=== PATIENT | female | born 1960 | race Caucasian/White ===

== ENCOUNTER 2022-03-05 16:27 | Inpatient (IN) | payer MEDICAID, OTHER, SELFPAY ==
[~2022-03-05] VITALS: Ht 167.6 cm; Wt 86.6 kg
--- NOTE | 2022-03-05 16:28 | NUR ---
BIBA to bed 10.
[2022-03-05 16:32] VITALS: BP 110/83
--- NOTE | 2022-03-05 16:33 | NUR ---
Patient states sternal chest pain 7/10, pressure/constant, radiating to mid back.
--- NOTE | 2022-03-05 16:33 | NUR ---
Pt also reports cough, headche, congestion. reports breathing tx without relief to symptoms. SpO2 100% on 2L by N.C
--- NOTE | 2022-03-05 16:33 | NUR ---
Dr. Mistry is evaluating patient at bedside
--- NOTE | 2022-03-05 16:33 | NUR ---
61 y/o F SAMMIE from [facility] [place] for acute onset of chest pain, nausea/vomiting, dizziness, SOB. Patient A&Ox4, non-ambulatory; EMS reports patient received ~55 minutes of dialysis removing 700mL of fluids. Patient reports vomiting x 6-7 episodes since 1500. Denies fever, chills, diarrhea, constipation. Dialysis port right upper chest; left fistula noted pt states inactive. Pt placed onto phototypesetting equipment monitor. SpO2 100% on room air. EMS states dialysis staff administered Tylenol 650mg PO prior to arrival. Lung sounds bilateral wheezing. Bed locked in lowest position, side rails x 2. PMH: hyperkalemia, acute renal failure, DM2, HTN, anemia, 2 MIs Meds: see chart NKDA Addendum: 03/05/22 at 1654 by MEDHL 61 y/o F SAMMIE from [facility] for acute onset of chest pain, nausea/vomiting, dizziness, SOB. Patient A&Ox4, non-ambulatory; EMS reports patient received ~55 minutes of dialysis removing 700mL of fluids. Patient reports vomiting x 6-7 episodes since 1500. Denies fever, chills, diarrhea, constipation. Dialysis port right upper chest; left fistula noted pt states inactive. Pt placed onto phototypesetting equipment monitor. SpO2 100% on 2L by TN. EMS states dialysis staff administered Tylenol 650mg PO prior to arrival. Lung sounds bilateral wheezing. Bed locked in lowest position, side rails x 2. PMH: hyperkalemia, acute renal failure, DM2, HTN, anemia, 2 MIs Meds: see chart NKDA
--- NOTE | 2022-03-05 16:36 | NUR ---
EMT at bedside for EKG
--- NOTE | 2022-03-05 16:43 | NUR ---
RAD at bedside
--- NOTE | 2022-03-05 16:53 | NUR ---
Spoke with Awais (daughter) Meds: Lisinopril, pantoprazole, trazodone, atenolol, ferrous sulfate, docusate sodium, sevelamer, vitamin D, albuterol
--- NOTE | 2022-03-05 16:54 | NUR ---
Lab at bedside
[2022-03-05] MEDS ORDERED: ALBUTEROL SULFATE/IPRATROPIU 3 ML SOL IH ONE (17:00)
[2022-03-05] MEDS ORDERED: ONDANSETRON 4 MG/2 ML VIAL IVP ONE (17:00)
--- NOTE | 2022-03-05 17:00 | NUR ---
Lab unable to draw bloodwork. Dr. Mistry made aware.
--- NOTE | 2022-03-05 17:15 | NUR ---
Patient states IV insertions started to left hand approved by her fire extinguisher repairer where inactive port resides to left upper arm. Dr. Mistry, charge nurse made aware.
--- NOTE | 2022-03-05 17:28 | NUR ---
RT at bedside for breathing treatment
--- NOTE | 2022-03-05 17:45 | NUR ---
RT remains at bedside for BiPAP application. IPAP/EPAP 10/5, Rate 10, FiO2 28%
[2022-03-05 17:49] VITALS: BP 195/69
--- NOTE | 2022-03-05 18:01 | NUR ---
Dr. Mistry is at bedside for ultrasound guided IV.
--- NOTE | 2022-03-05 18:11 | NUR ---
Blood sample collected, handed to CPT Susanne at ER bedside.
--- NOTE | 2022-03-05 18:12 | NUR ---
PT C/O PAIN, COOLNESS TO R UPPER ARM IV SITE. DR. CARLSON MADE AWARE.
[2022-03-05] MEDS ORDERED: MORPHINE SULFATE 4 MG/ML SYR IM ONE (18:15)
[2022-03-05] MEDS ORDERED: ONDANSETRON 4 MG/2 ML VIAL IM ONE (18:15)
[2022-03-05 18:26] LABS: BASOPHILS # (AUTO) 0.1 K/uL (0.00-0.22); BASOPHILS % (AUTO) 0.6 % (0.0-2.0); EOSINOPHILS # (AUTO) 0.1 K/uL (0-0.4); EOSINOPHILS % (AUTO) 1.1 % (0.0-4.0); HEMATOCRIT 29.7 % (36-48); HEMOGLOBIN 9.8 g/dL (12.0-16.0); LYMPHOCYTES # (AUTO) 0.3 K/uL (2.5-16.5); LYMPHOCYTES % (AUTO) 3.5 % (20.5-51.1); MEAN CORPUSCULAR HEMOGLOBIN 30 pg (27-31); MEAN CORPUSCULAR HGB CONC 33 g/dL (33-37); MEAN CORPUSCULAR VOLUME 91.1 fL (80-94); MONOCYTES # (AUTO) 0.6 K/uL (0.8-1.0); MONOCYTES % (AUTO) 6.7 % (1.7-9.3); NEUTROPHILS % (AUTO) 88.1 % (42.2-75.2); PLATELET COUNT (AUTO) 195 K/uL (140-450); RED BLOOD CELL COUNT(AUTO) 3.26 MIL/uL (4.20-5.40); WHITE BLOOD COUNT (AUTO) 9.1 K/uL (4.8-10.8)
[2022-03-05] MEDS ORDERED: ACETAMINOPHEN 325 MG TAB PO PRN (18:45)
[2022-03-05] MEDS ORDERED: ONDANSETRON 4 MG/2 ML VIAL IVP PRN (18:45)
[2022-03-05] MEDS ORDERED: MAGNESIUM OXIDE 400 MG TAB PO PRN (18:45)
--- NOTE | 2022-03-05 18:45 | NUR ---
Dawit conner collected, walked to lab and handed to CPT. Susanne
--- NOTE | 2022-03-05 18:49 | NUR ---
Spoke with Marlee Jones from [facility], status update given regarding CXR, labs and BiPAP needs with VSS.
[2022-03-05 18:52] LABS: ALBUMIN 3.4 g/dL (3.4-5.0); CARBON DIOXIDE 27.3 mmol/L (21-32); POTASSIUM 4.3 mmol/L (3.5-5.1); TOTAL BILIRUBIN 0.8 mg/dL (0.0-1.0)
--- NOTE | 2022-03-05 18:53 | NUR ---
Patient states positive relief from BiPAP; reports + relief to pain 3/10; denies nausea. Cardiac montior remains in place. All pt needs met.
[2022-03-05 18:54] LABS: CREATININE 6.5 mg/dL (0.6-1.3)
[2022-03-05 19:01] VITALS: BP 171/50
[2022-03-05] MEDS ORDERED: TRAZ-343 PO (19:04)
[2022-03-05] MEDS ORDERED: [UNRECOGNIZED DRUG - CODE] PO (19:04)
[2022-03-05] MEDS ORDERED: FERR325E14 PO (19:04)
[2022-03-05] MEDS ORDERED: ALBU0.0912 INH (19:04)
[2022-03-05] MEDS ORDERED: SEVE800T6 PO (19:04)
[2022-03-05] MEDS ORDERED: DOCU-299 PO (19:04)
[2022-03-05] MEDS ORDERED: LISI2.5T12 PO (19:04)
[2022-03-05] MEDS ORDERED: ATEN25TA7 PO (19:04)
--- NOTE | 2022-03-05 19:04 | NUR ---
UNABLE TO START IV ABX D/T NO IV LINE.
--- NOTE | 2022-03-05 19:12 | NUR ---
Called Stonecutter Apprentice Hand and ICU In-charge for ICU bed, No ICU bed is available this time.
--- NOTE | 2022-03-05 19:16 | NUR ---
Report and transfer of care given CHILO Fernández.
--- NOTE | 2022-03-05 19:30 | NUR ---
Received report from off-going nurse. Per report, unable to establish IV even with US guided method by MD and PICC line order has been placed. Pt sitting high-folwer, on bipap. Breathing unlabored, no acute respiratory distress noted. consulting solution manager on. BP elevated at 171/50. HR 80, RR 18. Pt alert and oriented x4. Pt able to answer in short sentences due to bipap. Pt states she's feeling "alright" and denies SOB at this time. Pt noted w/ HD access on RU chest, dressing c/d/i. Plan of care reviewed. Pt receptive to info. Pt has no needs at this time.
--- NOTE | 2022-03-05 20:08 | NUR ---
1808 ABG DRAWN ON BIPAP MODE. RESULTS ARE GOOD. NO CHANGES MADE ON BIPAP
--- NOTE | 2022-03-05 21:00 | NUR ---
Pt asleep. No acute distress. on BIPAP. Breathing unlabored. Awaiting inpt bed.
--- NOTE | 2022-03-05 21:43 | NUR ---
Called Blast Hole Driller and requested PICC line nurse.
[2022-03-05 22:03] VITALS: BP 176/84
--- NOTE | 2022-03-05 22:14 | NUR ---
Centrifuge Separator Operator called back , She can not contact PICC line nurse this time.
--- NOTE | 2022-03-05 23:15 | NUR ---
No changes in patient status. Pt asleep w/ BIPAP on. Breathing unlabored. 02 sat @100%. Awaiting inpt bed.
[2022-03-06] VITALS (12 sets, daily range): BP systolic 109–143; BP diastolic 51–90
--- NOTE | 2022-03-06 00:10 | NUR ---
Pt asleep w/ BIPAP. Breathing easy and unlabored. Pt aroused. Pt updated w/ plan of care. Pt receptive to info. Pt requesting to remove bipap. Pt without any acute respiratory distress. Removed BIPAP at this time. Placed pt on 5L NC, pt maintaining 02 sat @ 100. Breathing continues to be easy and unlabored. Will monitor patient. Traffic Police Officer at bedside at this time.
--- NOTE | 2022-03-06 00:30 | NUR ---
Pt continues to well without bipap at this time. Breathing easy and unlabored. Pt able to speak in complete sentences. Pt states she was getting over a cold this past weekend and was already feeling "bad" when she went to dialysis yesterday. Pt reports hx of asthma, DM, HTN, kidney dz with dialysis MWF. Pt states she did not complete dialysis today.
--- NOTE | 2022-03-06 00:45 | NUR ---
Patient will be admitted to care of Dr. Nowak. Admited to ICU. Will go to room 7. Belongings list completed. Report to Linsey.
--- NOTE | 2022-03-06 01:00 | NUR ---
ADMITTED THIS 61 YEAR OLD FEMALE PATIENT FROM ER PER DARRELL; AWAKE ALERT AND ORIENTED' ON 3 LITERS SO2 100%. CARDIACSCOPE SHOWS ON SINUS RHYTHM HR 86/MIN NO ARRHYTHMIAS SEEN. NO AVAILABLE IV LINE SINCE THEY WERE NOT ABLE TO INSERT ONE. PATIENT HAS HD ACCESS ON RIGHT UPPER CHEST; INTACT. ABDOMEN IS SOFT, NON TENDER, ACTIVE BOWEL SOUNDS.
--- NOTE | 2022-03-06 01:20 | NUR ---
0110 patient transfered to icu 7. bipap is on standby. patient is on 4lnc sats 100%
--- NOTE | 2022-03-06 02:00 | NUR ---
WITH OCCASIONAL PRODUCTIVE COUGH NOTED AND WAS ABLE TO EXPECTORATE THICK YELLOWISH SECRETION.
[2022-03-06] MEDS ORDERED: cefTRIAXone 1,000 MG VIAL ONE (02:29)
--- NOTE | 2022-03-06 02:30 | NUR ---
ABLE INSERTED IV CANNULA G24 ON RIGHT HAND; DUE IV ANTIBIOTIC GIVEN.
--- NOTE | 2022-03-06 04:00 | NUR ---
SO2 AT 3 LITERS 02 IS ALWAYS 100% SO TRIED TO PUT PATIENT ON ROOM AIR BUT SHE DESAT IMMEDIATELY TO AROUND 88%, SO PUT BACK TO 3 LITERS /
--- NOTE | 2022-03-06 07:15 | NUR ---
RECEIVED BEDSIDE REPORT FROM BAYRON COLUNGA RN FOR CONTINUITY OF CARE. PT IS LYING SUPINE IN THE BED, AAOX4, PERRLA. ON 3L NC, SPO2 100%. SR ON THE MONITOR. NO COMPLAINT OF CP AT THIS TIME. BOWEL SOUNDS ACTIVE. CONTINENT OF BOWEL AND BLADDER, ANURIC. PT IS LETHARGIC, ACTIVE ROM. SKIN INTACT. R HAND 24G INFUSING NS TKO @ 5 ML/H. SAFETY PRECAUTIONS MET. CALL LIGHT WITHIN REACH, PT IS ABLE TO MAKE NEEDS KNOWN. PT IS ON DROPLET PRECAUTIONS FOR COVID PUI.
--- NOTE | 2022-03-06 08:10 | NUR ---
PAGED DR HAN HARRINGTON TO CLARIFY IF PT WILL RECEIVE HEMODIALYSIS TODAY. NO HEMODIALYSIS ORDER AT THIS TIME.
--- NOTE | 2022-03-06 08:15 | NUR ---
DUE MEDS GIVEN, NADR. PT IS UP EATING BREAKFAST. WILL CONTINUE TO CLOSELY MONITOR.
--- NOTE | 2022-03-06 08:15 | NUR ---
PATIENT HAS BEEN SCREENED AND CATEGORIZED MODERATE NUTRITION RISK. PATIENT WILL BE SEEN WITHIN 3-5 DAYS OF ADMISSION. [address]
--- NOTE | 2022-03-06 08:30 | NUR ---
RECEIVED CALL BACK FROM DR SHORT. RECEIVED TORB FOR HEMODIALYSIS TODAY. CALLED [facility] N[facility]. ETA 0900.
--- NOTE | 2022-03-06 09:30 | NUR ---
PT COMPLAINS OF SOB. PAGED DR STEIN FOR ORDERS.
--- NOTE | 2022-03-06 09:55 | NUR ---
PT DAUGHTER CALLED. UPDATED REGARDING PT CONDITION, ALL QUESTIONS ANSWERED AT THIS TIME.
--- NOTE | 2022-03-06 09:57 | NUR ---
SEEN AND EXAMINED BY DR SHORT.
--- NOTE | 2022-03-06 09:57 | NUR ---
HEMODIALYSIS NURSE AT BEDSIDE
--- NOTE | 2022-03-06 10:00 | NUR ---
SPOKE WITH DR STEIN, RECEIVED ORDERS FOR DUONEB Q6H TORB. ENDORSED TO RT ROONEY.
--- NOTE | 2022-03-06 12:00 | NUR ---
MADE PHONE CALL TO ER TO LOCATE PT ADMISSION PAPERWORK. UNABLE TO LOCATE. ADMISSION PAPERWORK NOT IN ICU AT THIS TIME. NOT IN THE PT ROOM, NOT IN SHREDDER BOX.
--- NOTE | 2022-03-06 12:32 | NUR ---
LAB AT BEDSIDE
[2022-03-06] MEDS: ALBUTEROL SULFATE/IPRATROPIU 3 ML SOL IH SCH ×2 (12:35→19:00)
[2022-03-06 12:58] LABS: BASOPHILS # (AUTO) 0.1 K/uL (0.00-0.22); BASOPHILS % (AUTO) 1.3 % (0.0-2.0); EOSINOPHILS # (AUTO) 0.3 K/uL (0-0.4); EOSINOPHILS % (AUTO) 4.5 % (0.0-4.0); HEMATOCRIT 29.6 % (36-48); HEMOGLOBIN 9.7 g/dL (12.0-16.0); LYMPHOCYTES # (AUTO) 0.4 K/uL (2.5-16.5); LYMPHOCYTES % (AUTO) 5.4 % (20.5-51.1); MEAN CORPUSCULAR HEMOGLOBIN 30 pg (27-31); MEAN CORPUSCULAR HGB CONC 33 g/dL (33-37); MEAN CORPUSCULAR VOLUME 91.5 fL (80-94); MONOCYTES # (AUTO) 0.8 K/uL (0.8-1.0); NEUTROPHILS # (AUTO) 5.4 K/uL (1.8-7.7); NEUTROPHILS % (AUTO) 77.8 % (42.2-75.2); PLATELET COUNT (AUTO) 130 K/uL (140-450); RED BLOOD CELL COUNT(AUTO) 3.24 MIL/uL (4.20-5.40); RED CELL DISTRIBUTION WIDTH 17.4 % (11.6-13.7)
[2022-03-06 13:10] LABS: PHOSPHORUS 4.3 mg/dL (2.5-4.9)
--- NOTE | 2022-03-06 13:15 | NUR ---
PT DAUGHTER CAME TO DROP OFF PT BELONGINGS AND HOME MED LIST. 2 UNDERWEAR, 3 SOCK PAIRS, 2 CHARGERS. UPDATED REGARDING PT CONDITION, ALL QUESTIONS ANSWERED AT THIS TIME. PT CURRENTLY UNDERGOING HEMODIALYSIS. UNABLE TO RECEIVE VISITOR.
[2022-03-06] MEDS ORDERED: PANT40EC PO (13:37)
[2022-03-06] MEDS ORDERED: FLUT1DSK4 IH (13:40)
--- NOTE | 2022-03-06 13:45 | NUR ---
PT FINISHED WITH DIALYSIS. 3500 ML OUT.
--- NOTE | 2022-03-06 13:50 | NUR ---
PT EATING LUNCH, ATE 40%.
--- NOTE | 2022-03-06 14:10 | NUR ---
SEEN AND EXAMINED BY DR STEIN. RECEIVED DOWNGRADE ORDERS.
[2022-03-06 14:35] LABS: ALBUMIN 3.2 g/dL (3.4-5.0); ANION GAP 19.8 (8-16); CARBON DIOXIDE 24.6 mmol/L (21-32); POTASSIUM 4.4 mmol/L (3.5-5.1); TOTAL BILIRUBIN 0.6 mg/dL (0.0-1.0)
[2022-03-06 14:40] LABS: CREATININE 6.9 mg/dL (0.6-1.3)
--- NOTE | 2022-03-06 15:33 | NUR ---
KENNETH, PICC NURSE AT BEDSIDE.
[2022-03-06] MEDS: HYDROcodone/APAP 5/325 MG 1 TAB TAB PO PRN (16:42)
--- NOTE | 2022-03-06 16:42 | NUR ---
PT COMPLAINS OF 8/10 CHEST PAIN RELATED TO COUGHING. MEDICATED WITH NORCO PER PRN ORDERS. WILL CONTINUE TO CLOSELY MONITOR.
--- NOTE | 2022-03-06 16:57 | NUR ---
RECEIVED PHONE CALL FROM [facility] WITH DR SHORT. SPOKE WITH TERRY. UPDATED REGARDING PT CONDITION. ALL QUESTIONS ANSWERED AT THIS TIME.
--- NOTE | 2022-03-06 19:00 | NUR ---
CALLED PT DAUGHTER TO UPDATE REGARDING PT CONDITION AND TRANSFER TO MST. ALL QUESTIONS ANSWERED AT THIS TIME.
--- NOTE | 2022-03-06 19:35 | NUR ---
TRANSFERRED PT TO TELE BED 120B IN WHEELCHAIR CONNECTED TO 3L NC.
--- NOTE | 2022-03-06 19:47 | NUR ---
ENDORSED BEDSIDE REPORT TO MICHAEL GARCIA RN FOR CONTINUITY OF CARE.
[2022-03-07] VITALS: BP 118/76
--- NOTE | 2022-03-07 | NUR ---
ROUNDS , NO COMPLAIN MADE - O2 SAT 100 % .
[2022-03-07] MEDS: ALBUTEROL SULFATE/IPRATROPIU 3 ML SOL IH SCH ×4 (02:00→19:38)
--- NOTE | 2022-03-07 02:00 | NUR ---
SLEEPING , BUT EASILY AWAKEABLE BY SOUNDS . NO COMPLAIN MADE . CALL LIGHT WITHIN REACH .
[2022-03-07 04:00] VITALS: BP 125/60
--- NOTE | 2022-03-07 04:00 | NUR ---
C/O BODY ACHES - WILL MEDICATE . W/ PERSISTENT COUGHING NOTED - WILL MEDICATE FOR COUGH . CALL LIGHT WITHIN REACH , O2 SAT 100 %
[2022-03-07] MEDS: BENZONATATE 100 MG CAPLF PO PRN ×2 (05:28→22:19)
--- NOTE | 2022-03-07 06:00 | NUR ---
INFORMED IN HOUSE PHARMACIST I GAVE HEPARIN SQ AT 0000 INSTEAD OF 2100 - PER PHARMACIST NO NEED FOR REVISION OF TIME SCHEDULE FOR HEPARIN . Addendum: 03/07/22 at 0756 by Bhumika Lawson RN BUN AND CREA - TRENDING DOWN - GOT HD .
[2022-03-07 06:26] LABS: ALBUMIN 3.1 g/dL (3.4-5.0); ANION GAP 13.6 (8-16); CARBON DIOXIDE 28.8 mmol/L (21-32); POTASSIUM 4.4 mmol/L (3.5-5.1); TOTAL BILIRUBIN 0.5 mg/dL (0.0-1.0)
[2022-03-07 06:46] LABS: CREATININE 6.2 mg/dL (0.6-1.3)
--- NOTE | 2022-03-07 07:25 | NUR ---
ENDORSED - PT - STABLE .
--- NOTE | 2022-03-07 07:26 | NUR ---
RECEIVED REPORT FROM LEAD MASSAGE THERAPIST NURSE. PATIENT LYING DOWN IN BED SLEEPING, AROUSABLE BY VOICE. NO DISTRESS NOTED. ON O2 NC 3L/MIN, SKIN INTACT. ULISES AV FISTULA, RUCHEST TUNNELED CATH NOTED. INTACT. IV SITES INTACT, PATENT, AND ON SALINE LOCK. REVIEWED PLAN OF CARE WITH PATIENT. VERBALIZED UNDERSTANDING. REINFORCEMENT NEEDED. SAFETY MEASURES IN PLACE, CALL LIGHT WITHIN REACH. WILL CONTINUE TO MONITOR.
[2022-03-07 08:00] VITALS: BP 120/53
--- NOTE | 2022-03-07 10:00 | NUR ---
PATIENT SITTING IN BED WATCHING TV. NO DISTRESS NOTED. DENIES ANY PAIN. WILL CONTINUE TO MONITOR.
[2022-03-07 12:00] VITALS: BP 137/59
--- NOTE | 2022-03-07 13:00 | NUR ---
PATIENT LYING DOWN IN BED. GETTING HD. NO DISTRESS NOTED. WILL CONTINUE TO MONITOR.
[2022-03-07 16:00] VITALS: BP 133/52
--- NOTE | 2022-03-07 17:00 | NUR ---
HD COMPLETED. 3L OUT. WILL CONTINUE TO MONITOR.
--- NOTE | 2022-03-07 18:15 | NUR ---
SCHEDULED MEDICATIONS DUE GIVEN. WILL CONTINUE TO MONITOR.
--- NOTE | 2022-03-07 19:23 | NUR ---
GAVE REPORT TO INSOLE ROUNDER NURSE. PATIENT IN STABLE. CONDITION.
--- NOTE | 2022-03-07 19:24 | NUR ---
RECEIVED BEDSIDE REPORT FROM DAY RN. PATIENT OBSERVED SITTING IN BED WATCHING TV, AAOX4. NO DISTRESS NOTED. RESPIRATION IS EQUAL AND UNLABORED ON O2 NC 2L/MIN, SKIN INTACT. ULISES AV FISTULA, RUCHEST TUNNELED CATH NOTED. INTACT. IV SITES INTACT, PATENT, AND ON SALINE LOCK. REVIEWED PLAN OF CARE WITH PATIENT. VERBALIZED UNDERSTANDING. DROPLET PRECAUTIONS IN PLACE FOR RSV. SAFETY MEASURES IN PLACE, CALL LIGHT WITHIN REACH. WILL CONTINUE TO MONITOR. Addendum: 03/07/22 at 2230 by Pallavi Herbert RN MARYLOU MIDLINE DOUBLE LUMEN SL
--- NOTE | 2022-03-07 19:38 | NUR ---
PT PRESENTS LAYING IN BED AWAKE AND COOPERATIVE, ANTERIOR AUSCULTATION REVEALED BS CLEAR APICES ; CLEAR/DIMINISHED BASES, STRONG PRODUCTIVE COUGH, NO SIGNS OF RESPIRATORY DISTRESS NOTED AT THIS TIME. PT IS CURRENTLY SATING 97% ON 2LPM NC. WILL CONTINUE TO MONITOR. Addendum: 03/07/22 at 2103 by Walter Barrientos RT ADMINISTERED HHN TV VIA SVN WITH MASK; SOB IMPROVED.
[2022-03-07 20:00] VITALS: BP 128/48
--- NOTE | 2022-03-07 20:10 | NUR ---
VITAL SIGNS ARE STABLE. AMAYA HEP SUBQ GIVEN PER ORDERS. MED EDUCATION GIVEN PT VERBALIZED UNDERSTANDING. CUP OF ICE CHIPS GIVEN PER REQUEST. ALL NEEDS MET. WILL CONTINUE TO MONITOR.
[2022-03-07] MEDS: HYDROcodone/APAP 5/325 MG 1 TAB TAB PO PRN (22:19)
--- NOTE | 2022-03-07 22:19 | NUR ---
PRN NORCO GIVEN FOR 6/10 PAIN ON CHEST/HEAD. ALL NEEDS MET. WILL CONTINUE TO MONITOR.
[2022-03-08] VITALS: BP 124/56
--- NOTE | 2022-03-08 00:16 | NUR ---
VITAL SIGNS ARE WITHIN NORMAL LIMITS. ALL SAFETY MEASURES ARE IN PLACE. WILL CONTINUE TO MONITOR.
[2022-03-08] MEDS: ALBUTEROL SULFATE/IPRATROPIU 3 ML SOL IH SCH ×4 (01:00→19:27)
--- NOTE | 2022-03-08 01:11 | NUR ---
PT DECLINED HHN TX. SHE STATED SHE RATHER REST. NO SIGNS OF RESPIRATORY DISTRESS NOTED AT THIS TIME. WILL CONTINUE TO MONITOR.
--- NOTE | 2022-03-08 02:41 | NUR ---
ROUNDS MADE PT OBSERVED LAYING IN BED WITH EYES CLOSED APPEARS TO BE ASLEEP.CHEST RISE AND FALL NOTED.
[2022-03-08 04:00] VITALS: BP 120/61
--- NOTE | 2022-03-08 04:10 | NUR ---
VITAL SIGNS ARE WITHIN NORMAL LIMITS. ALL SAFETY MEASURES ARE IN PLACE. WILL CONTINUE TO MONITOR
--- NOTE | 2022-03-08 06:03 | NUR ---
PATIENT REFUSED BLOOD DRAW THIS AM. PT ESRD LAST HD YESTERDAY. PT VERBALIZED UNDERSTANDING BUT CONTINUED TO REFUSE DESPITE EDUCATION.
--- NOTE | 2022-03-08 07:18 | NUR ---
GAVE BEDSIDE REPORT TO DAY RN. PT ENDORSED IN STABLE CONDITION.
--- NOTE | 2022-03-08 07:20 | NUR ---
RECEIVED REPORT FROM DIGITAL LEARNING PLATFORMS MANAGER NURSE FOR CONTINUITY OF CARE. PER REPORT PT REFUSED AM BLOOD DRAW. PT ASLEEP IN BED. BREATHING SYMMETRICAL ON 2L NC. FLACC O. CALL LIGHT WITHIN REACH. ALL SAFETY MEASURES IN PLACE.
[2022-03-08 08:00] VITALS: BP 134/58
[2022-03-08 08:09] LABS: HEPATITIS A ANTIBODY IGM Negative (Negative); HEPATITIS B CORE AB TOTAL Negative (Negative); HEPATITIS B SURFACE ANTIBODY Reactive (.); HEPATITIS B SURFACE ANTIGEN Negative (Negative)
--- NOTE | 2022-03-08 09:30 | NUR ---
PT GETTING ECHOCARDIOGRAM DONE AT THIS TIME
--- NOTE | 2022-03-08 10:24 | NUR ---
HEPARIN NOT GIVEN. PT REFUSED BLOOD DRAW THIS MORNING. LAST BLOOD DRAW WAS 03/06/22 WITH PLATELET COUNT 130, DECREASED FROM 195 AT 03/05/22
[2022-03-08 12:00] VITALS: BP 142/65
--- NOTE | 2022-03-08 13:10 | NUR ---
PT BREATHING TX NOT GIVEN AT THIS TIME. PT IS EATING, SATURATION OF 99% AND HAS CLEAR BREATH SOUNDS. WILL CONTINUE TO MONITOR
--- NOTE | 2022-03-08 13:14 | NUR ---
DC PLANNING: THE PATIENT WAS SENT TO THE ER BY DIALYSIS WITH C/O SEVERAL EPISODES OF N/V DURING DIALYSIS. ALSO C/O COUGH AND H/A WITH CONGESTION. H/O ESRD, ANEMIA, HTN, DM, ASTHMA AND MA X 2. BNP 2660, CXR SUGGESTIVE OF CHF. ORDERS FOR CONSULTS WITH NEPHROLOGY AND PULMONOLOGY, STARTED ON DUONEBS AND ROCEPHIN IV. CM SPOKE WITH THE PATIENT AT BEDSIDE AND CONFIRMED HER ADDRESS AND PHONE NUMBER. SHE LIVES IN A GROUND FLOOR APARTMENT WITH HER DAUGHTER WHO IS ALSO HER [employer] WORKER AND HAS 31 HRS/WK. SHE IS ABLE TO AMBULATE SHORT DISTANCES INSIDE HER APARTMENT USING A QUAD CANE BUT USES A WC OUTSIDE OF HER HOME. HAS OTHER DME OF A ROLLATOR, 3 IN 1 COMMODE, GLUCOMETER, [facility] B[facility]. ALSO HAS A PULSE OX AND B/P CUFF. THE PATIENT GOES TO DIALYSIS AT [facility] WITH DR SHORT ON , , W AT 2:00 PM. SHE USES TRANSPORT ARRANGED THROUGH HER INSURANCE WHICH HER DAUGHTER FADUMO WILL SET UP WHEN THE PATIENT DISCHARGES. 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 SHE ALSO GOES TO OP P.T. IN [place] WEEKLY S/P BROKEN ARM AFTER A FALL AT HOME. SHE SEES HER PCP REGULARLY AND IS IN THE PROCESS OF A NEURO W/U BECAUSE OF RIGHT LEG WEAKNESS. DC PLAN IS TO RETURN HOME WITH FAMILY WHEN CLINICALLY STABLE, CM WILL FOLLOW FOR NEEDS. Addendum: 03/08/22 at 1325 by Jennifer Pollard CM Amended: Links added. Addendum: 03/09/22 at 1009 by Jennifer Pollard CM DC PLANNING: CANDACE SPOKE WITH [email or web address] ([phone]) TO CONFIRM THAT THE PATIENT IS ON SERVICE WITH THEM. FAXED THE H&P PER THEIR REQUEST ([phone]) AND ENDORSED THAT THE PATIENT MIGHT DC THIS WEEKEND. CANDACE WILL SPEAK WITH THE ATTENDING MD REGARDING AN ORDER TO RESUME HOME HEALTH IN ANTICIPATION OF WEEKEND DC. CANDACE WILL FOLLOW. Addendum: 03/09/22 at 1304 by Jennifer Pollard CM DC PLANNING: MESSAGE LEFT FOR [facility] CANDACE JENNINGS ([phone]) ENDORSING THAT AN ORDER TO RESUME HOME HEALTH AND CLINICAL PACKET WAS FAXED TO HER FOR [facility]IZATION [facility]. CM WILL FOLLOW. Addendum: 03/09/22 at 1536 by Jennifer Pollard CM DC PLANNING: CM SPOKE WITH DR DUMONT, PATIENT DC PENDING SENSITIVITY FOR SPUTUM CULTURE, PRELIM RESULTS SHOW GRAM POSITIVE COCCI. CM WILL FOLLOW.
--- NOTE | 2022-03-08 14:05 | NUR ---
LEFT MESSAGE TO DR NE RODRIGUEZ REGARDING CARDIO CONSULT
--- NOTE | 2022-03-08 14:10 | NUR ---
SEENBY DR SHORT PLASTICS FABRICATOR, ORDER FOR HEMODIALYSIS, LEFT MESSAGE DYER HD NURSE.
[2022-03-08] MEDS ORDERED: guaiFENesin 20 MG/ML UDC PO PRN (14:20)
[2022-03-08 16:00] VITALS: BP 142/68
--- NOTE | 2022-03-08 17:30 | NUR ---
PT AWAKE IN BED. BREATHING SYMMETRICAL ON ROOM AIR. PT STATES BREATHING IS MUCH BETTER. DENIES PAIN. CALL LIGHT WITHIN REACH. ENCOURAGED TO ALWAYS CALL FOR ASSISTANCE.
--- NOTE | 2022-03-08 19:57 | NUR ---
ENDORSED PT TO PICK PULLING MACHINE TENDER NURSE.
[2022-03-08 20:00] VITALS: BP 143/62
--- NOTE | 2022-03-08 20:00 | NUR ---
PATIENT IS LYING ON BED, PATIENT IS ALERT AND ORIENTED X4 , NO ANY COMPLAIN OF PAIN OR SOB AT THIS TIME, VITAL SIGN IS WITHIN THE RANGE , CALL LIGHT WITHIN THE REACH, ALL DUE MEDS ARE GIVEN PER DR ORDER,WILL CONTINUE TO MONITOR
[2022-03-09] VITALS: BP 135/52
[2022-03-09] MEDS: HYDROcodone/APAP 5/325 MG 1 TAB TAB PO PRN (00:07)
--- NOTE | 2022-03-09 00:30 | NUR ---
PATIENT IS LYING ON BED, COMPLAINING OF PAIN 5/10 AND COUGH, MEDICATED PATIENT WITH PRN MEDS PER DR ORDER. VITAL SIGN IS WITHIN THE NORMAL RANGE, CALL LIGHT IS WITHIN THE REACH, WILL CONTINUE TO MONITOR.
[2022-03-09] MEDS: ALBUTEROL SULFATE/IPRATROPIU 3 ML SOL IH SCH ×4 (01:00→19:38)
--- NOTE | 2022-03-09 01:15 | NUR ---
PT REFUSED TX. PT IS SLEEPING, NO RESPIRATORY DISTRESS NOTED AT THIS TIME. WILL CONTINUE TO MONITOR
[2022-03-09] MEDS ORDERED: DEXTROSE 50% 50 ML SYR IVP PRN (01:50)
[2022-03-09 04:00] VITALS: BP 147/48
--- NOTE | 2022-03-09 04:30 | NUR ---
PATIENT IS LYING ON BED, NO ANY COMPLAIN OF PAIN OR SOB AT THIS TIME, VITAL SIGN IS WITHIN THE REACH , CALL LIGHT IS WITHIN THE REACH WILL CONTINUE TO MONITOR.
[2022-03-09] MEDS: BLOOD GLUCOSE MONITORING 1 DEV DEV FS SCH ×4 (06:33→20:38)
--- NOTE | 2022-03-09 06:39 | NUR ---
PATIENT IS LYING ON BED, NO ANY COMPLAIN OF PAIN OR SOB AT THIS TIME, VITAL SIGN IS WITHIN THE NORMAL RANGE, ,BLOOD SUGAR IS 113 NO COVERAGE NEEDED , ALL DUE MEDS ARE GIVEN PER DR ORDER, CHANGED AND PATIENT WITH HELP OF EXHAUST AND MUFFLER FITTER, CALL LIGHT IS WITHIN THE REACH WILL CONTINUE TO MONITOR
--- NOTE | 2022-03-09 07:25 | NUR ---
RECEIVED REPORT FROM LEGAL ADMINISTRATIVE ASSISTANT NURSE FOR CONTINUITY OF CARE. PT AWAKE IN BED. BREATHING SYMMETRICAL ON ROOM AIR. DENIES PAIN AT THIS TIME. WITH RUC PERMACATH, NO BLEEDING NOTED. WITH ULISES AV FISTULA PER PT NOT WORKING. ALSO WITH MARYLOU MIDLINE 2 LUMEN AND RIGHT THUMB 24G BOTH ON SALINE LOCK. CALL LIGHT WITHIN REACH. ALL SAFETY MEASURES IN PLACE.
[2022-03-09 07:50] LABS: ANION GAP 15.3 (8-16); CARBON DIOXIDE 27.8 mmol/L (21-32); POTASSIUM 4.1 mmol/L (3.5-5.1); TOTAL BILIRUBIN 0.9 mg/dL (0.0-1.0)
[2022-03-09 08:00] VITALS: BP 141/60
[2022-03-09 08:08] LABS: CREATININE 7.3 mg/dL (0.6-1.3)
--- NOTE | 2022-03-09 09:10 | NUR ---
DR DUMONT MADE AWARE OF CREATININE LEVEL 7.3, ALSO DR SHORT MADE AWARE PT FOR HEMODIALYSIS TODAY. DR DUMONT ALSO MADE AWARE LAST CBC BLOOD DRAW WAS 03/06 WITH NEW ORDER FOR CBC TODAY.
[2022-03-09 09:36] LABS: BASOPHILS % (AUTO) 0.8 % (0.0-2.0); EOSINOPHILS # (AUTO) 0.3 K/uL (0-0.4); EOSINOPHILS % (AUTO) 6.9 % (0.0-4.0); HEMATOCRIT 27.8 % (36-48); HEMOGLOBIN 9.2 g/dL (12.0-16.0); LYMPHOCYTES # (AUTO) 0.7 K/uL (2.5-16.5); LYMPHOCYTES % (AUTO) 15.7 % (20.5-51.1); MEAN CORPUSCULAR HEMOGLOBIN 30 pg (27-31); MEAN CORPUSCULAR HGB CONC 33 g/dL (33-37); MEAN CORPUSCULAR VOLUME 90.9 fL (80-94); MONOCYTES # (AUTO) 0.6 K/uL (0.8-1.0); MONOCYTES % (AUTO) 12.3 % (1.7-9.3); NEUTROPHILS # (AUTO) 3.1 K/uL (1.8-7.7); NEUTROPHILS % (AUTO) 64.3 % (42.2-75.2); PLATELET COUNT (AUTO) 223 K/uL (140-450); RED BLOOD CELL COUNT(AUTO) 3.06 MIL/uL (4.20-5.40); RED CELL DISTRIBUTION WIDTH 17.3 % (11.6-13.7); WHITE BLOOD COUNT (AUTO) 4.8 K/uL (4.8-10.8)
--- NOTE | 2022-03-09 10:20 | NUR ---
NOTED RIGHT THUMB IV LINE ALREADY OUT. NO BLEEDING NOTED.
--- NOTE | 2022-03-09 10:40 | NUR ---
PT HAVING HEMODIALYSIS AT THIS TIME.
[2022-03-09 12:00] VITALS: BP 144/58
--- NOTE | 2022-03-09 12:10 | NUR ---
HEPARIN GIVEN DURING HEMODIALYSIS BY HD NURSE.
--- NOTE | 2022-03-09 12:17 | NUR ---
03/09/22 RD INITIAL ASSESSMENT COMPLETED PLEASE REFER TO NUTRITION ASSESSMENT UNDER CARE ACTIVITY FOR ESTIMATED NUTRITIONAL NEEDS. 1. CONTINUE CCHO 60 GM, RENAL DIET TOLERATED 2. PROVIDED NUTRITION EDUCATION HANDOUT FOR RENAL FAILURE ON HEMODIALYSIS 3. MONITOR NUTRITION-RELATED LAB VALUES 4. RD TO FOLLOW-UP 3-5 DAYS; MODERATE RISK CHIN FLYNN RD
--- NOTE | 2022-03-09 13:25 | NUR ---
PT DONE WITH HEMODIALYSIS, 3L OUT.
--- NOTE | 2022-03-09 13:25 | NUR ---
PT STATED THAT SHE WAS HAVING N/V AND WANTED TO SKIP THE BREATHING TX DUE AT 1300. SHE FELT THAT HER HD WAS CAUSING A PROBLEM WITH HER STOMACH.
[2022-03-09] MEDS ORDERED: LACTULOSE 20 GM/30 ML UDC PO PRN (14:00)
[2022-03-09 16:00] VITALS: BP 106/50
--- NOTE | 2022-03-09 17:15 | NUR ---
PT AWAKE IN BED. BREATHING SYMMETRICAL ON ROOM AIR, NOTED WITH EPISODES OF PRODUCTIVE COUGH WITH SMALL AMOUNT OF SPUTUM, DENIES SOB OR PAIN AT THIS TIME. ENCOURAGED TO ALWAYS CALL FOR ASSISTANCE. CALL LIGHT WITHIN REACH. ALL SAFETY MEASURES IN PLACE.
--- NOTE | 2022-03-09 19:20 | NUR ---
ENDORSED PT TO SENIOR SAS PROGRAMMER NURSE. PT IN STABLE CONDITION
[2022-03-09 20:00] VITALS: BP 142/39
--- NOTE | 2022-03-09 20:00 | NUR ---
GET REPORT FROM MORNING NURSE, PATIENT IS LYING ON BED ,PATIENT IS ALERT AND ORIENTED X 4, NO ANY COMPLAIN OF PAIN OR SOB AT THIS TIME, VITAL SIGN IS WITHIN THE RANGE, ALL DUE MEDS ARE GIVEN PER DR ORDER,BLOOD SUGAR IS 199, INSULIN COVERAGE GIVEN ,CALL LIGHT IS WITHIN THE REACH ,WILL CONTINUE TO MONITOR.
[2022-03-09] MEDS: DOCUSATE SODIUM 100 MG GELCAP PO SCH (20:39)
[2022-03-09] MEDS: INSULIN LISPRO SLIDING SCALE 100 UNITS/ML VIAL SUBQ PRN (20:49)
[2022-03-10] VITALS: BP 119/36
--- NOTE | 2022-03-10 00:30 | NUR ---
PATIENT IS LYING ON BED, NO ANY COMPLAIN OF PAIN OR SOB NOTED, VITAL SIGN IS WITHIN THE RANGE , ALL DUE MEDS ARE GIVEN PER DR ORDER, CALL LIGHT IS WITHIN THE REACH ,WILL CONTINUE TO MONITOR.
[2022-03-10] MEDS: ALBUTEROL SULFATE/IPRATROPIU 3 ML SOL IH SCH ×3 (00:59→13:44)
--- NOTE | 2022-03-10 00:59 | NUR ---
PATIENT REFUSED HER HHNTX AT THIS TIME. NO SOB NOTED
[2022-03-10 04:00] VITALS: BP 109/44
[2022-03-10] MEDS: BLOOD GLUCOSE MONITORING 1 DEV DEV FS SCH ×3 (06:41→16:56)
--- NOTE | 2022-03-10 06:41 | NUR ---
PATIENT IS LYING ON BED, NO ANY COMPLAIN OF PAIN OR SOB NOTED, VITAL SIGN IS WITHIN THE RANGE , ALL DUE MEDS ARE GIVEN PER DR ORDER, BLOOD SUGAR IS 118 NO COVERAGE NEEDED, CALL LIGHT IS WITHIN THE REACH ,WILL CONTINUE TO MONITOR.
--- NOTE | 2022-03-10 07:00 | NUR ---
ROCEPHIN DISCONTINUED BY PHARMACY DUE TO REACHED STOP DATE.PLEASE TALKED TO MD IF DR WANTS TO CONTINUE ROCEPHIN NEEDS TO REORDER IT.
--- NOTE | 2022-03-10 07:25 | NUR ---
RECEIVED PT FROM NIGHT RN, PT IS ALERT, AWAKE AND ORIENTED, ON ROOM AIR, HAS A MARYLOU MIDLINE, DOUBLE LUMEN, PT HAS A DIALYSIS ACCESS ON THE RIGHT UPPER CHEST PERMACATHETER, , HAS A ULISES AV SHUNT, NON-FUNCTIONING, ON DROPLETY ISOLATION FOR RSV POSITIVE, NO SIGN OF DISTRESS NOTED AND WILL CONTINUE TO MONITOR PT
[2022-03-10 07:27] LABS: ALBUMIN 3.1 g/dL (3.4-5.0); ANION GAP 13.3 (8-16); CARBON DIOXIDE 27.7 mmol/L (21-32); TOTAL BILIRUBIN 0.5 mg/dL (0.0-1.0)
[2022-03-10 07:44] LABS: CREATININE 5.8 mg/dL (0.6-1.3)
[2022-03-10 08:00] VITALS: BP 134/40
[2022-03-10] MEDS: DOCUSATE SODIUM 100 MG GELCAP PO SCH (09:46)
[2022-03-10 12:00] VITALS: BP 128/47
[2022-03-10] MEDS ORDERED: AMOX-999 PO (12:35)
[2022-03-10] MEDS ORDERED: ROB PO (12:35)
[2022-03-10] MEDS ORDERED: BENZ100C6 PO (12:35)
[2022-03-10 16:00] VITALS: BP 153/56
[2022-03-10] MEDS: INSULIN LISPRO SLIDING SCALE 100 UNITS/ML VIAL SUBQ PRN (16:57)
[2022-03-10] MEDS ORDERED: ALBUTEROL SULFATE/IPRATROPIU 3 ML SOL IH SCH (18:00)
--- NOTE | 2022-03-10 18:00 | NUR ---
DISCHARGED P[T TO HOME ACCOMPANIED BY DAUGHTER, MIDLINE WAS REMOVED, RT UPPER CHEST PERMACATHETER INTACT, DISCHARGE INSTRUCTIONS AND PRESCRIPTIONS WERE GIVEN TO PT AND VERBALIZED UNDERSTANDING. PT IS STABLE AT THIS TIME.
== END 2022-03-10 18:00 | disposition home or self-care (01) | DRG 133 ==
LOC: MED 16:27 → MTU 18:54 → MIC 23:53 → MTU 03-06 19:11
PROVIDERS: ADMIT Internal Medicine; ATTEND Internal Medicine
PROC: 5A09357 Assistance with Respiratory Ventilation, Less than 24 Consecutive Hours, Continuous Positive Airway Pressure (ICD-10-PCS; 2022-03-05)
PROC: 5A1D70Z Performance of Urinary Filtration, Intermittent, Less than 6 Hours Per Day (ICD-10-PCS; principal; 2022-03-06)
PROC: 5A1D70Z Performance of Urinary Filtration, Intermittent, Less than 6 Hours Per Day (ICD-10-PCS; 2022-03-07)
PROC: 5A1D70Z Performance of Urinary Filtration, Intermittent, Less than 6 Hours Per Day (ICD-10-PCS; 2022-03-09)
DX: J96.00 Acute respiratory failure, unspecified whether with hypoxia or hypercapnia (principal); I13.2 Hypertensive heart and chronic kidney disease with heart failure and with stage 5 chronic kidney disease, or end stage renal disease; N18.6 End stage renal disease; J44.1 Chronic obstructive pulmonary disease with (acute) exacerbation; E11.319 Type 2 diabetes mellitus with unspecified diabetic retinopathy without macular edema; D63.1 Anemia in chronic kidney disease; E11.22 Type 2 diabetes mellitus with diabetic chronic kidney disease; R65.10 Systemic inflammatory response syndrome (SIRS) of non-infectious origin without acute organ dysfunction; I50.9 Heart failure, unspecified; I25.10 Atherosclerotic heart disease of native coronary artery without angina pectoris; Z20.822 Contact with and (suspected) exposure to COVID-19; Z99.2 Dependence on renal dialysis; I25.2 Old myocardial infarction; Z82.49 Family history of ischemic heart disease and other diseases of the circulatory system; Z79.899 Other long term (current) drug therapy
CPT/HCPCS: 36415; 36600; 71045; 80053; 82803; 82948; 83605; 83735; 83880; 84100; 84484; 85025; 86704; 86706; 86708; 86709; 86803; 87070; 87081; 87205; 87340; 93005; 94640; 96372; 99285; J0696; J1644; J2270; J2405; J7060